=== PATIENT | male | born 1950 | race Caucasian/White ===

== ENCOUNTER 2017-04-07 06:21 | Day surgery (SDC) | payer BC, OTHER ==
[2017-04-02 16:32] VITALS: BMI 41.6
[~2017-04-07 06:21] MED LIST: DEXAMETHASONE SOD PHOSPHATE 10 MG/ML 1 ML VIAL IV ONE; HYDROmorphone 0.5 MG/0.5 ML SYRINGE IVP PRN; LACTATED RINGERS 1,000 ML IV SCH; LIDOCAINE 1% 20 ML VIAL (10MG/ML) FOR IV START INTRADERMA PRN; MIDAZOLAM 2 MG/2 ML VIAL IV PRN; ONDANSETRON 4 MG/2 ML VIAL IVP ONE; Pre Op ABX Message 1 EACH MISC MISCELLANE ONE; SCOPOLAMINE 1.5MG/72HR PATCH TRANSDERM ONE
[2017-04-07 06:52] VITALS: TEMP 97.8
[2017-04-07 06:59] LABS: Glucose,Whole Blood 172 mg/dL (75-99)
[2017-04-07] MEDS ORDERED: PROPOFOL 10 MG/ML 20 ML VIAL IV ONE (07:08)
[2017-04-07 07:53] LABS: Basophils # (A) 0.1 k/uL (0-0.2); Basophils % (A) 1 %; Eosinophils # (A) 0.4 k/uL (0-0.7); Eosinophils % (A) 4 %; HCT 54.3 % (39.0-53.0); HGB 16.2 gm/dL (13.0-17.5); Hypochromasia Marked; Lymphocytes # (A) 1.4 k/uL (1.0-4.8); Lymphocytes % (A) 14 %; MCH 22.9 pg (25.0-35.0); MCHC 29.9 g/dL (31.0-37.0); MCV 76.6 fL (80.0-100.0); Mean Platelet Volume 6.8; Microcytosis Slight; Monocytes # (A) 0.7 k/uL (0-1.0); Monocytes % (A) 7 %; Neutrophils # (A) 7.3 k/uL (1.3-7.7); Neutrophils % (A) 73 %; Platelet Count 288 k/uL (150-450); RDW 15.4 % (11.5-15.5); WBC 9.9 k/uL (3.8-10.6)
[2017-04-07 08:00] LABS: RBC 7.08 m/uL (4.30-5.90)
[2017-04-07 08:07] VITALS: BP 102/68; PULSE 65; RESP 20
--- NOTE | 2017-04-07 13:20 | PCN ---
PROCEDURE NOTE DATE OF SERVICE: 04/07/2017 PREOPERATIVE DIAGNOSIS: Polycythemia vera. POSTOPERATIVE DIAGNOSIS: Polycythemia vera. PROCEDURE: Bone marrow aspirate and biopsy. SITE: Right iliac crest. DETAILS: Utilizing aseptic technique, the skin overlying the right iliac crest was prepared with Betadine and alcohol. After adequate sterile draping, systemic sedation and local anesthesia of 1% lidocaine, a size 11, 4-inch [employer] needle was utilized to access the periosteum with ease. A total of 15 mL of aspirate as well as 1 cm core biopsies were obtained. The patient tolerated the procedure very well. There was no immediate procedure related complication. TOTAL BLOOD LOSS: Less than 1 mL. RESULTS: Pending. MMODL / IJN: [id number] /
== END 2017-04-07 08:27 | disposition home or self-care (01) ==
LOC: OR 06:21
PROVIDERS: ATTEND Internal Medicine Hematology & Oncology
DX: D45 Polycythemia vera (principal); E11.9 Type 2 diabetes mellitus without complications; J45.909 Unspecified asthma, uncomplicated; I10 Essential (primary) hypertension; E78.5 Hyperlipidemia, unspecified; Z88.8 Allergy status to other drugs, medicaments and biological substances; Z79.84 Long term (current) use of oral hypoglycemic drugs; Z79.82 Long term (current) use of aspirin; Z79.899 Other long term (current) drug therapy
CPT/HCPCS: 38221; 85025; J2704

== ENCOUNTER → 2017-08-25 | Outpatient (CLI) | payer OTHER ==
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
== END | disposition home or self-care (01) ==
LOC: SLEEP 14:37
PROVIDERS: ATTEND Internal Medicine Critical Care Medicine
DX: G47.10 Hypersomnia, unspecified (principal); R06.83 Snoring; D75.1 Secondary polycythemia; E66.9 Obesity, unspecified; E11.9 Type 2 diabetes mellitus without complications; E78.5 Hyperlipidemia, unspecified; Z98.890 Other specified postprocedural states; Z79.84 Long term (current) use of oral hypoglycemic drugs; Z68.39 Body mass index [BMI] 39.0-39.9, adult; Z79.51 Long term (current) use of inhaled steroids
CPT/HCPCS: 99211

== ENCOUNTER 2018-08-30 22:27 | Emergency (ER) | payer OTHER ==
--- NOTE | 2018-08-30 22:54 | ED ---
General Adult HPI - General Chief complaint: Recheck/Abnormal Lab/Rx Stated complaint: High Potassium Level Time Seen by Provider: 08/30/18 22:39 Source: patient Mode of arrival: ambulatory Limitations: no limitations - History of Present Illness Initial comments: Dictation was produced using [employer] dictation software. please excuse any grammatical, word or spelling errors. Chief Complaint: 68-year-old male sent in by primary care physician for hyperkalemia. History of Present Illness: 68-year-old male year blood tests drawn this morning. He was fasting at the time. He was called 20 minutes prior to arrival and told to come to the emergency department for a potassium of 7.0. Patient has been complaining of 3 days of shortness of breath. He states that his symptoms are getting worse. Does report mild cough. He does have a history of asthma. Denies any chest pain. No lower show any symptoms. Denies any history of blood clot. The ROS documented in this emergency department record has been reviewed and confirmed by me. Those systems with pertinent positive or negative responses have been documented in the HPI. All other systems are other negative and/or noncontributory. PHYSICAL EXAM: General Impression: Alert and oriented x3, not in acute distress HEENT: Normocephalic atraumatic, extra-ocular movements intact, pupils equal and reactive to light bilaterally, mucous membranes moist. Cardiovascular: Heart regular rate and rhythm, S1&S2 audible, no murmurs, rubs or gallops Chest: Lungs clear to auscultation bilaterally, no rhonchi, no wheeze, no rales Abdomen: Bowel sounds present, abdomen soft, non-tender, non-distended, no organomegaly Musculoskeletal: Pulses present and equal in all extremities, no peripheral edema Motor: no focal deficits noted Neurological: CN II-XII grossly intact, no focal motor or sensory deficits noted Skin: Intact with no visualized rashes Psych: Normal affect and mood ED course: 68-year-old male with abnormal outpatient lab with potassium 7.0. Patient also short of breath for 3 days. Vital signs upon arrival are within acceptable limits.Patient's potassium is fine at 4.9. Patient likely had lab error with hemolyzed sample. : Patient has hemoglobin of 18.1, hematocrit of 63.3, patient has a history of polycythemia vera. D-dimer is 0.69. CT a negative for pulmonary embolism. Rest of labs unremarkable. rest of labspatient has stable vital signs. clear for discharge. EKG interpretation: Ventricular rate 80, normal sinus rhythm, LA interval 160, QRS 82, QTC 424. No LA prolongation, no QTC prolongation, no ST or T-wave changes noted. Overall, this EKG is unremarkable - Related Data Home Medications Medication Instructions Recorded Confirmed Aspirin 325 mg PO QAM 08/24/13 08/30/18 Atenolol [Tenormin] 50 mg PO QAM 08/24/13 08/30/18 Simvastatin [Zocor] 10 mg PO HS 08/24/13 08/30/18 Ferrous Sulfate [Feosol] 325 mg PO DAILY 04/02/17 08/30/18 Albuterol Inhaler [Ventolin Hfa 1 puff INHALATION RT-QID PRN 08/30/18 08/30/18 Inhaler] Alogliptin Benzoate [Alogliptin] 25 mg PO DAILY 08/30/18 08/30/18 Empagliflozin [Jardiance] 10 mg PO DAILY 08/30/18 08/30/18 glipiZIDE [Glucotrol] 20 mg PO BID 08/30/18 08/30/18 Allergies Allergy/AdvReac Type Severity Reaction Status Date / Time metformin Allergy severe Verified 08/30/18 22:54 Diarrhea Review of Systems ROS Statement: Those systems with pertinent positive or pertinent negative responses have been documented in the HPI. ROS Other: All systems not noted in ROS Statement are negative. 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 Date of last positivie culture/infection: 01/2013 MDRO Source:: eye infection Additional Past Surgical History / Comment(s): Rt eye surgery, plastic sx nose, Past Anesthesia/Blood Transfusion Reactions: No Reported Reaction Past Psychological History: No Psychological Hx Reported Smoking Status: Never smoker - Past Family History Mother Family Medical History: No Reported History General Exam Limitations: no limitations Course Vital Signs 08/30/18 08/31/18 22:31 00:00 Temperature 97.8 F Pulse Rate 84 76 Respiratory 16 18 Rate Blood Pressure 126/71 109/77 O2 Sat by Pulse 93 L 95 Oximetry Medical Decision Making - Lab Data Result diagrams: 08/30/18 22:45 08/30/18 22:45 Lab Results 08/30/18 08/30/18 08/31/18 Range/Units 22:45 22:45 00:11 WBC 10.7 H (3.8-10.6) k/uL RBC 6.54 H (4.30-5.90) m/uL Hgb 18.1 H (13.0-17.5) gm/dL Hct 63.3 H* (39.0-53.0) % MCV 74.4 L (80.0-100.0) fL MCH 21.2 L (25.0-35.0) pg MCHC 28.5 L (31.0-37.0) g/dL RDW 17.6 H (11.5-15.5) % Plt Count 265 (150-450) k/uL Neutrophils % 69 % Lymphocytes % 15 % Monocytes % 7 % Eosinophils % 6 % Basophils % 1 % Neutrophils # 7.4 (1.3-7.7) k/uL Lymphocytes # 1.6 (1.0-4.8) k/uL Monocytes # 0.7 (0-1.0) k/uL Eosinophils # 0.7 (0-0.7) k/uL Basophils # 0.1 (0-0.2) k/uL Hypochromasia Marked Anisocytosis Slight Microcytosis Moderate D-Dimer 0.69 H (<0.60) mg/L FEU Sodium 137 (137-145) mmol/L Potassium 4.9 (3.5-5.1) mmol/L Chloride 104 (98-107) mmol/L Carbon Dioxide 23 (22-30) mmol/L Anion Gap 10 mmol/L BUN 21 H (9-20) mg/dL Creatinine 0.87 (0.66-1.25) mg/dL Est GFR (CKD-EPI)AfAm >90 (>60 ml/min/1.73 sqM) Est GFR (CKD-EPI)NonAf >90 (>60 ml/min/1.73 sqM) Glucose 196 H (74-99) mg/dL Calcium 10.1 (8.4-10.2) mg/dL Magnesium 2.1 (1.6-2.3) mg/dL Total Bilirubin 0.8 (0.2-1.3) mg/dL AST 27 (17-59) U/L ALT 19 L (21-72) U/L Alkaline Phosphatase 104 (38-126) U/L Creatine Kinase 47 L (55-170) U/L Total Protein 7.6 (6.3-8.2) g/dL Albumin 4.3 (3.5-5.0) g/dL Urine Color Urine Appearance (Clear) Urine pH (5.0-8.0) Ur Specific [place] (1.001-1.035) Urine Protein (Negative) Urine Glucose (UA) (Negative) Urine Ketones (Negative) Urine Blood (Negative) Urine Nitrite (Negative) Urine Bilirubin (Negative) Urine Urobilinogen (<2.0) mg/dL Ur Leukocyte Esterase (Negative) 08/31/18 Range/Units 00:30 WBC (3.8-10.6) k/uL RBC (4.30-5.90) m/uL Hgb (13.0-17.5) gm/dL Hct (39.0-53.0) % MCV (80.0-100.0) fL MCH (25.0-35.0) pg MCHC (31.0-37.0) g/dL RDW (11.5-15.5) % Plt Count (150-450) k/uL Neutrophils % % Lymphocytes % % Monocytes % % Eosinophils % % Basophils % % Neutrophils # (1.3-7.7) k/uL Lymphocytes # (1.0-4.8) k/uL Monocytes # (0-1.0) k/uL Eosinophils # (0-0.7) k/uL Basophils # (0-0.2) k/uL Hypochromasia Anisocytosis Microcytosis D-Dimer (<0.60) mg/L FEU Sodium (137-145) mmol/L Potassium (3.5-5.1) mmol/L Chloride (98-107) mmol/L Carbon Dioxide (22-30) mmol/L Anion Gap mmol/L BUN (9-20) mg/dL Creatinine (0.66-1.25) mg/dL Est GFR (CKD-EPI)AfAm (>60 ml/min/1.73 sqM) Est GFR (CKD-EPI)NonAf (>60 ml/min/1.73 sqM) Glucose (74-99) mg/dL Calcium (8.4-10.2) mg/dL Magnesium (1.6-2.3) mg/dL Total Bilirubin (0.2-1.3) mg/dL AST (17-59) U/L ALT (21-72) U/L Alkaline Phosphatase (38-126) U/L Creatine Kinase (55-170) U/L Total Protein (6.3-8.2) g/dL Albumin (3.5-5.0) g/dL Urine Color Yellow Urine Appearance Clear (Clear) Urine pH 5.0 (5.0-8.0) Ur Specific [place] 1.041 H (1.001-1.035) Urine Protein Negative (Negative) Urine Glucose (UA) 4+ H (Negative) Urine Ketones Negative (Negative) Urine Blood Negative (Negative) Urine Nitrite Negative (Negative) Urine Bilirubin Negative (Negative) Urine Urobilinogen <2.0 (<2.0) mg/dL Ur Leukocyte Esterase Negative (Negative) Disposition Clinical Impression: Abnormal laboratory test, Dyspnea Disposition: HOME SELF-CARE Condition: Good Instructions (If sedation given, give patient instructions): Dyspnea (ED) Is patient prescribed a controlled substance at d/c from ED?: No Referrals: [facility],Clinic [Primary Care Provider] - 1-2 days Time of Disposition: 01:40
[2018-08-30 23:12] LABS: Anisocytosis Slight; Basophils # (A) 0.1 k/uL (0-0.2); Basophils % (A) 1 %; Eosinophils # (A) 0.7 k/uL (0-0.7); Eosinophils % (A) 6 %; HGB 18.1 gm/dL (13.0-17.5); Hypochromasia Marked; Lymphocytes # (A) 1.6 k/uL (1.0-4.8); Lymphocytes % (A) 15 %; MCH 21.2 pg (25.0-35.0); MCHC 28.5 g/dL (31.0-37.0); MCV 74.4 fL (80.0-100.0); Mean Platelet Volume 6.8; Microcytosis Moderate; Monocytes # (A) 0.7 k/uL (0-1.0); Monocytes % (A) 7 %; Neutrophils # (A) 7.4 k/uL (1.3-7.7); Neutrophils % (A) 69 %; Platelet Count 265 k/uL (150-450); RDW 17.6 % (11.5-15.5); WBC 10.7 k/uL (3.8-10.6)
--- NOTE | 2018-08-30 23:17 | XR ---
EXAM: XR Chest, 2 Views CLINICAL HISTORY: ITS.REASON XR Reason: Pain TECHNIQUE: Frontal and lateral views of the chest. COMPARISON: No relevant prior studies available. FINDINGS: Lungs: Unremarkable. No consolidation. Pleural space: Unremarkable. No pneumothorax. Heart: No suspicious enlargement. Mediastinum: Unremarkable. Bones/joints: No acute fracture. IMPRESSION: No acute findings.
[2018-08-30 23:20] LABS: ALT 19 U/L (21-72); AST 27 U/L (17-59); Albumin 4.3 g/dL (3.5-5.0); Alkaline Phosphatase 104 U/L (38-126); Anion Gap 10 mmol/L; Blood Urea Nitrogen 21 mg/dL (9-20); Calcium 10.1 mg/dL (8.4-10.2); Carbon Dioxide 23 mmol/L (22-30); Chloride 104 mmol/L (98-107); Creatine Kinase 47 U/L (55-170); Glucose 196 mg/dL (74-99); Magnesium 2.1 mg/dL (1.6-2.3); Potassium 4.9 mmol/L (3.5-5.1); Sodium 137 mmol/L (137-145); Total Bilirubin 0.8 mg/dL (0.2-1.3); Total Protein 7.6 g/dL (6.3-8.2)
[2018-08-30 23:49] LABS: RBC 6.54 m/uL (4.30-5.90)
[2018-08-30 23:55] LABS: HCT 63.3 % (39.0-53.0)
[2018-08-31 01:25] LABS: Appearance,Urine Clear (Clear); Bilirubin,Urine Negative (Negative); Blood,Urine Negative (Negative); Color,Urine Yellow; Glucose,Urine (UA) 4+ (Negative); Ketones,Urine Negative (Negative); Leukocyte Esterase,Urine Negative (Negative); Nitrite,Urine Negative (Negative); Protein,Urine Negative (Negative); Specific Gravity,Urine 1.041 (1.001-1.035); Urobilinogen,Urine <2.0 mg/dL (<2.0)
--- NOTE | 2018-08-31 01:29 | CT ---
EXAM: CT Angiography Chest With Intravenous Contrast CLINICAL HISTORY: ITS.REASON CT Reason: Pain TECHNIQUE: Axial computed tomographic angiography images of the chest with intravenous contrast using pulmonary embolism protocol. This CT exam was performed using one or more of the following dose reduction techniques: automated exposure control, adjustment of the mA and/or kV according to patient size, and/or use of iterative reconstruction technique. 3D reconstructed images were created and reviewed. COMPARISON: No relevant prior studies available. FINDINGS: Pulmonary arteries: Unremarkable. No pulmonary embolism. Aorta: No suspicious findings. No thoracic aortic aneurysm. Lungs: Peribronchial thickening without infiltrate. No mass. Pleural space: Unremarkable. No significant effusion. No pneumothorax. Heart: Unremarkable. No cardiomegaly. No significant pericardial effusion. No evidence of RV dysfunction. Bones/joints: No acute fracture. No dislocation. Soft tissues: Unremarkable. Lymph nodes: Unremarkable. No enlarged lymph nodes. Gallbladder and bile ducts: Cholelithiasis. IMPRESSION: Peribronchial thickening without infiltrate.
[2018-08-31 02:01] VITALS: BP 127/94; PULSE 76; RESP 16; TEMP 98.1
== END 2018-08-31 01:59 | disposition home or self-care (01) ==
LOC: EC 22:27
DX: R06.02 Shortness of breath (principal); R89.9 Unspecified abnormal finding in specimens from other organs, systems and tissues; R05 Cough; J45.909 Unspecified asthma, uncomplicated; E11.9 Type 2 diabetes mellitus without complications; E78.5 Hyperlipidemia, unspecified; I10 Essential (primary) hypertension; Z86.14 Personal history of Methicillin resistant Staphylococcus aureus infection; Z79.82 Long term (current) use of aspirin; Z79.84 Long term (current) use of oral hypoglycemic drugs; Z79.899 Other long term (current) drug therapy; Z88.8 Allergy status to other drugs, medicaments and biological substances
CPT/HCPCS: 36415 ×2; 93005; 85379; 80053; 82550; 83735; 85025; 81003; 71046; 71275; 99285; Q9967

== ENCOUNTER 2024-09-23 07:22 | Day surgery (SDC) | payer OTHER ==
[2024-09-05 10:12] VITALS: BMI 35.2
[~2024-09-23 07:22] MED LIST changes: -DEXAMETHASONE SOD PHOSPHATE 10 MG/ML 1 ML VIAL IV ONE; -HYDROmorphone 0.5 MG/0.5 ML SYRINGE IVP PRN; -LIDOCAINE 1% 20 ML VIAL (10MG/ML) FOR IV START INTRADERMA PRN; -MIDAZOLAM 2 MG/2 ML VIAL IV PRN; -ONDANSETRON 4 MG/2 ML VIAL IVP ONE; -Pre Op ABX Message 1 EACH MISC MISCELLANE ONE; -SCOPOLAMINE 1.5MG/72HR PATCH TRANSDERM ONE
[2024-09-23] MEDS: IV FLUID CONTINUATION 1,000 ML IV ONE (07:35)
[2024-09-23 07:41] VITALS: TEMP 97.7
[2024-09-23 07:56] LABS: Glucose,Whole Blood 124 mg/dL (70-110)
[2024-09-23] MEDS ORDERED: ONDANSETRON 4 MG/2 ML VIAL ONE (08:48)
[2024-09-23] MEDS ORDERED: PROPOFOL 10 MG/ML 20 ML VIAL IV ONE (08:48)
--- NOTE | 2024-09-23 09:05 | P.PCN ---
Date of Procedure: 09/23/24 Procedure(s) Performed: BRIEF HISTORY: Patient is a 74-year-old pleasant white male scheduled for an elective colonoscopy as a part of screening for colon cancer/positive Cologuard PROCEDURE PERFORMED: Colonoscopy with snare polypectomy. PREOPERATIVE DIAGNOSIS: Screening for colon cancer/positive Cologuard. IV sedation per Anesthesia. PROCEDURE: After informed consent was obtained, the patient, was brought into the endoscopy unit. IV sedation was administered by Anesthesia under continuous monitoring. Digital rectal examination was normal. Initially the Olympus CF-160 flexible video colonoscope was then inserted in the rectum, gradually advanced into the cecum without any difficulty. Careful examination was performed as the scope was gradually being withdrawn. Ileocecal valve and the appendiceal orifice were visualized and appeared normal. Prep was fair. Mucosa of the cecum, ascending colon, appeared normal. Transverse colon there was a six 8 mm polyp that was removed by cold snare polypectomy. Rest of the transverse colon, descending colon, sigmoid colon, and rectum appeared normal. Scattered sigmoid diverticulosis. Retroflexion was performed in the rectum and small internal hemorrhoids were seen. The patient tolerated the procedure well. IMPRESSION: 8 mm transverse colon polyp status post cold snare polypectomy Scattered sigmoid diverticulosis small internal hemorrhoids RECOMMENDATIONS: Findings of this examination were discussed with the patient as well as his family. He was advised to follow-up with the biopsy results. If the biopsy reveals adenoma he can have repeat colonoscopy in 5 years..
[2024-09-23] MEDS ORDERED: LACTATED RINGERS 1,000 ML IV SCH (09:08)
[2024-09-23 09:57] VITALS: BP 115/68; PULSE 85; RESP 14
== END 2024-09-23 10:33 | disposition home or self-care (01) ==
LOC: ORWHC2ENDO 07:22
PROVIDERS: ATTEND Internal Medicine Gastroenterology
DX: Z12.11 Encounter for screening for malignant neoplasm of colon (principal); D12.3 Benign neoplasm of transverse colon; K57.30 Diverticulosis of large intestine without perforation or abscess without bleeding; K64.8 Other hemorrhoids; E11.9 Type 2 diabetes mellitus without complications; E78.5 Hyperlipidemia, unspecified; D75.1 Secondary polycythemia; J45.909 Unspecified asthma, uncomplicated; Z79.84 Long term (current) use of oral hypoglycemic drugs; Z79.899 Other long term (current) drug therapy; Z86.79 Personal history of other diseases of the circulatory system; Z88.8 Allergy status to other drugs, medicaments and biological substances
CPT/HCPCS: 88305; 45385; J2405; J2704